=== PATIENT | female | born 1990 | race Two or more races ===

== ENCOUNTER 2020-08-12 11:03 | Emergency (ER) | payer SELFPAY ==
[~2020-08-12] VITALS: Ht 162.6 cm; Wt 59.0 kg
[2020-08-12] MEDS ORDERED: LURA20TA MT (12:34)
[2020-08-12] MEDS ORDERED: ESCI10TA MT (12:34)
[2020-08-12 13:00] VITALS: BP 120/61
== END 2020-08-12 13:30 | disposition home or self-care (01) ==
LOC: ER 11:03
DX: F41.9 Anxiety disorder, unspecified (principal); F31.9 Bipolar disorder, unspecified
CPT/HCPCS: 99281